=== PATIENT | female | born 1940 | race Caucasian/White ===

== ENCOUNTER → 2021-03-13 | Outpatient (CLI) | payer MEDICARE, BC | LOC: EXRD 11:30 → KOH-I 11:30 | DX: R60.0 Localized edema (principal) | CPT/HCPCS: 93971 ==

== ENCOUNTER → 2022-05-17 | Outpatient (CLI) | payer MEDICARE, BC ==
[2022-05-17 17:25] LABS: HEMOGLOBIN 13.1 gm/dl (12.3-15.3); RED BLOOD COUNT 4.32 M/UL (4.00-5.10); WHITE BLOOD COUNT 4.2 K/UL (4.5-11.0)
[2022-05-17 17:46] LABS: BUN/CREATININE RATIO 16 (0-10)
== END ==
LOC: LAB 16:58
PROVIDERS: Emergency Medicine
DX: U07.1 COVID-19 (principal); R06.02 Shortness of breath; R11.0 Nausea; R42 Dizziness and giddiness
CPT/HCPCS: 36415; 71045; 80053; 85025; 85379

== ENCOUNTER 2022-05-19 16:37 | Emergency (ER) | payer MEDICARE, BC ==
[2022-05-19 17:41] LABS: HEMOGLOBIN 13.9 gm/dl (12.3-15.3); RED BLOOD COUNT 4.51 M/UL (4.00-5.10)
[2022-05-19 17:47] LABS: WHITE BLOOD COUNT 3.1 K/UL (4.5-11.0)
[2022-05-19 18:11] LABS: BUN/CREATININE RATIO 21 (0-10)
== END 2022-05-19 22:46 | disposition home or self-care (01) ==
LOC: ER1 16:37
PROVIDERS: Physician Assistant Medical
DX: U07.1 COVID-19 (principal); Z00.01 Encounter for general adult medical examination with abnormal findings; R40.2410 Glasgow coma scale score 13-15, unspecified time; I10 Essential (primary) hypertension; Z88.1 Allergy status to other antibiotic agents; Z85.43 Personal history of malignant neoplasm of ovary; Z88.0 Allergy status to penicillin; Z88.5 Allergy status to narcotic agent
CPT/HCPCS: 80053; 84439; 84443; 85025; 99284; Q9967